=== PATIENT | male | born 1930 | race Caucasian/White ===

== ENCOUNTER 2016-06-25 18:57 | Observation (INO) | payer OTHER ==
[~2016-06-25] VITALS: Ht 170.2 cm; Wt 67.6 kg
[~2016-06-25 18:57] MED LIST: ASPIRIN325 MG PO; ATENOLOL25 M1 PO; B-12250 MCG PO; B12 PO; BEPREVE10 ML BOTH EYES; BETIMOL 0.100 DROP/5 BOTH EYES; FIORICET,ESG1 TABLET PO; FISH OIL 1,0001 EAC7 PO; FISH OIL CONC1000 M1 PO; HEARTBURN150 MG PO; LIPITOR PO; LIPITOR80 MG PO; LYRICA PO; LYRICA50 MG PO; MELATONIN300 MCG PO; METOCLOPRAMIDE H5 MG PO; MIRALAX255 GM PO; NIACIN1000 MG PO; NITROSTAT0.4 MG SL; OCUVITE; OCUVITE1 TABLET PO; PLAVIX75 MG PO; POLYETHYLENE GLYCOL; PRAVASTATIN SOD40 MG PO; PRINIVIL5 MG PO; RANITIDINE HCL150 M1 PO; RANITIDINE HCL150 MG PO; RHINOCORT AQUA8.6 G1 IH; SANCTURA20 MG PO; STOOL SOFTENER1 EAC2 PO; TENORMIN25 MG PO; TIMOLOL MALEATE5 M1 BOTH EYES; TRAVATAN 0.004%5 ML BOTH EYES; TRAVATAN Z5 ML BOTH EYES; TYLENOL ARTHRI650 M2 PO; VERAPAMIL HCL120 M1 PO; VIAGRA; VIAGRA100 MG PO; VITAMIN D1000 INTUN PO; XARELTO20 MG PO; ZETIA10 MG PO; predniSONE PO
[2016-06-25 19:48] LABS: HEMATOCRIT 40.9 % (38.0-50.0); MCH 33.6 PG (29.0-34.0); MCHC 34.2 G/DL (30.0-36.0); MCV 98.1 FL (86-99); MEAN PLAT.VOLUME 10.8 uM^3 (9.0-12.4); PLATELET COUNT 167 K/uL (156-360); RBC DIS.WIDTH-CV 12.4 % (11.8-14.6); RBC DIS.WIDTH-SD 43.1 % (39-53); RED BLOOD COUNT 4.17 M/uL (4.00-5.50); WHITE BLOOD COUNT 5.9 K/uL (4.1-10.2)
[2016-06-25 20:05] LABS: CHLORIDE 103 mEq/L (99-109); POTASSIUM 4.1 mEq/L (3.7-5.4); SODIUM 140 mEq/L (136-147)
[2016-06-25 20:06] LABS: GLUCOSE 150 mg/dL (70-99)
[2016-06-25 20:08] LABS: ANION GAP 8 MEQ/L (2-14)
[2016-06-25 20:10] LABS: GFR ESTIMATE (CALCULATED) > 59 mL/min/
[2016-06-25 20:11] LABS: UREA NITROGEN (BUN) 19 mg/dL (9-23)
[2016-06-25 20:12] LABS: TROP-I INTERPRETATION NEGATIVE; TROPONIN-I < 0.01 ng/mL (0.0-0.30)
[2016-06-25] MEDS ORDERED: LYRICA50 MG PO (22:39)
[2016-06-25] MEDS ORDERED: STOOL SOFTENER100 M1 PO (22:40)
[2016-06-25] MEDS ORDERED: OMEGA-3 + D SO1 EACH PO (22:41)
[2016-06-25] MEDS ORDERED: CARVEDILOL6.25 MG PO (22:41)
[2016-06-25] MEDS ORDERED: CIALIS5 MG PO (22:42)
[2016-06-25] MEDS ORDERED: OCUVITE TABLET1 EACH PO (22:42)
[2016-06-26 02:15] VITALS: BP 120/57
[2016-06-26 03:04] LABS: TROP-I INTERPRETATION NEGATIVE; TROPONIN-I < 0.01 ng/mL (0.0-0.30)
[2016-06-26 04:26] VITALS: BP 125/62
[2016-06-26 04:27] VITALS: BP 115/56
[2016-06-26 04:28] VITALS: BP 115/60
[2016-06-26 08:57] VITALS: BP 118/62
[2016-06-26 09:27] LABS: TROP-I INTERPRETATION NEGATIVE; TROPONIN-I < 0.01 ng/mL (0.0-0.30)
== END 2016-06-26 12:29 | disposition home or self-care (01) ==
LOC: EME 18:57 → EDOF 23:20 → 5WEST 23:20 → EDOF 23:20 → 5WEST 06-26 01:41
PROVIDERS: Physician Assistant
DX: R00.1 Bradycardia, unspecified (principal); R07.9 Chest pain, unspecified; R42 Dizziness and giddiness; I48.91 Unspecified atrial fibrillation; I25.10 Atherosclerotic heart disease of native coronary artery without angina pectoris; Z95.1 Presence of aortocoronary bypass graft; I25.2 Old myocardial infarction; Z79.01 Long term (current) use of anticoagulants; Z87.891 Personal history of nicotine dependence; Z86.73 Personal history of transient ischemic attack (TIA), and cerebral infarction without residual deficits
CPT/HCPCS: 70450; 71020; 80048; 84484; 85027; 93005; 99281; 99285; G0378

== ENCOUNTER 2016-07-01 23:42 | Observation (INO) | payer OTHER ==
[~2016-07-01] VITALS: Ht 170.2 cm; Wt 63.7 kg
[~2016-07-01 23:42] MED LIST changes: +CARVEDILOL6.25 MG PO; +CIALIS5 MG PO; +OCUVITE TABLET1 EACH PO; +OMEGA-3 + D SO1 EACH PO; +STOOL SOFTENER100 M1 PO
[2016-07-02 00:33] LABS: HEMATOCRIT 39.3 % (38.0-50.0); MCH 33.3 PG (29.0-34.0); MCHC 34.6 G/DL (30.0-36.0); MCV 96.3 FL (86-99); MEAN PLAT.VOLUME 10.9 uM^3 (9.0-12.4); PLATELET COUNT 152 K/uL (156-360); RBC DIS.WIDTH-CV 12.3 % (11.8-14.6); RBC DIS.WIDTH-SD 41.7 % (39-53); RED BLOOD COUNT 4.08 M/uL (4.00-5.50); WHITE BLOOD COUNT 6.1 K/uL (4.1-10.2)
[2016-07-02 00:42] LABS: CHLORIDE 107 mEq/L (99-109); POTASSIUM 3.8 mEq/L (3.7-5.4); SODIUM 139 mEq/L (136-147)
[2016-07-02 00:44] LABS: GLUCOSE 131 mg/dL (70-99)
[2016-07-02 00:45] LABS: ANION GAP 6 MEQ/L (2-14)
[2016-07-02 00:48] LABS: GFR ESTIMATE (CALCULATED) > 59 mL/min/; UREA NITROGEN (BUN) 16 mg/dL (9-23)
[2016-07-02 00:53] LABS: TROP-I INTERPRETATION NEGATIVE; TROPONIN-I < 0.01 ng/mL (0.0-0.30)
[2016-07-02 08:00] VITALS: BP 136/62
== END 2016-07-02 16:01 | disposition home or self-care (01) ==
LOC: EME 23:42 → EDOF 07-02 03:47 → 5WEST 07-02 03:47 → EDOF 07-02 03:47 → 5WEST 07-02 04:50
PROVIDERS: Emergency Medicine
DX: R55 Syncope and collapse (principal); I48.1 Persistent atrial fibrillation; I25.10 Atherosclerotic heart disease of native coronary artery without angina pectoris; Z95.5 Presence of coronary angioplasty implant and graft; I25.2 Old myocardial infarction; Z86.73 Personal history of transient ischemic attack (TIA), and cerebral infarction without residual deficits; I73.9 Peripheral vascular disease, unspecified; G47.33 Obstructive sleep apnea (adult) (pediatric); I35.0 Nonrheumatic aortic (valve) stenosis; Z79.01 Long term (current) use of anticoagulants; Z98.890 Other specified postprocedural states; Z87.891 Personal history of nicotine dependence; Z82.49 Family history of ischemic heart disease and other diseases of the circulatory system
CPT/HCPCS: 71010; 80048; 84443; 84484; 85027; 93005; 93306; 99281; 99285; G0378

== ENCOUNTER 2016-08-26 06:26 | Day surgery (SDC) | payer OTHER ==
[~2016-08-26] VITALS: Ht 171.4 cm; Wt 64.2 kg
[2016-08-26 17:17] VITALS: BP 154/70
[2016-08-26 19:50] VITALS: BP 158/79
[2016-08-26 23:59] VITALS: BP 117/72
[2016-08-27 03:27] VITALS: BP 146/69
[2016-08-27 07:05] VITALS: BP 128/87
[2016-08-27] MEDS ORDERED: METOPROLOL SUCC25 MG PO (10:57)
== END 2016-08-27 11:32 | disposition home or self-care (01) ==
LOC: CATH 06:26 → 4EAST 09:32 → 2SOUTH 09:32 → 4EAST 17:03
DX: I49.5 Sick sinus syndrome (principal); I95.9 Hypotension, unspecified; I73.9 Peripheral vascular disease, unspecified; G47.33 Obstructive sleep apnea (adult) (pediatric); Z95.1 Presence of aortocoronary bypass graft; I35.0 Nonrheumatic aortic (valve) stenosis; Z79.01 Long term (current) use of anticoagulants
CPT/HCPCS: 71010; C1786; C1894; C1898; G0378; J0690; J1200; J2250; J3010; S0020

== ENCOUNTER 2016-11-11 07:40 | Observation (INO) | payer OTHER ==
[~2016-11-11] VITALS: Ht 172.7 cm; Wt 67.7 kg
[~2016-11-11 07:40] MED LIST changes: +METOPROLOL SUCC25 MG PO
[2016-11-11 08:23] LABS: HEMATOCRIT 41.3 % (38.0-50.0); MCH 32.5 PG (29.0-34.0); MCHC 33.4 G/DL (30.0-36.0); MCV 97.4 FL (86-99); MEAN PLAT.VOLUME 11.2 uM^3 (9.0-12.4); PLATELET COUNT 130 K/uL (156-360); RBC DIS.WIDTH-CV 12.5 % (11.8-14.6); RBC DIS.WIDTH-SD 44.9 % (39-53); RED BLOOD COUNT 4.24 M/uL (4.00-5.50); WHITE BLOOD COUNT 4.9 K/uL (4.1-10.2)
[2016-11-11 08:34] LABS: CHLORIDE 106 mEq/L (99-109); POTASSIUM 4.5 mEq/L (3.7-5.4); SODIUM 139 mEq/L (136-147)
[2016-11-11 08:35] LABS: INTER. NORMALIZED RATIO 1.2; PROTHROMBIN TIME 12.7 (9.2-11.2); PTT 32.3 (25-32)
[2016-11-11 08:37] LABS: GLUCOSE 124 mg/dL (70-99)
[2016-11-11 08:38] LABS: ANION GAP 7 MEQ/L (2-14); TOTAL BILIRUBIN 0.7 mg/dL (0.0-1.0)
[2016-11-11 08:40] LABS: ALKALINE PHOSPHATASE 93 IU/L (3-129); GFR ESTIMATE (CALCULATED) > 59 mL/min/
[2016-11-11 08:41] LABS: UREA NITROGEN (BUN) 19 mg/dL (9-23)
[2016-11-11 08:43] LABS: TROP-I INTERPRETATION NEGATIVE; TROPONIN-I < 0.01 ng/mL (0.0-0.30)
[2016-11-11 08:44] LABS: DIGOXIN 0.4 ng/mL (0.8-2.0)
[2016-11-11 11:03] LABS: ADD MIUA? YES; BILIRUBIN NEGATIVE; BLOOD NEGATIVE; COLOR YELLOW ((YELLOW)); GLUCOSE (STRIP) NEGATIVE; KETONES NEGATIVE; LEUKOCYTES NEGATIVE; NITRITE NEGATIVE; PROTEIN (STRIP) NEGATIVE; SPECIFIC GRAVITY 1.014 (1.000-1.030); UROBILINOGEN 0.2 MG/DL (0.2-1.0)
[2016-11-11 11:12] LABS: BACTERIA NONE SEEN /HPF; EPITHELIAL CELLS NONE SEEN /HPF; MUCUS NONE SEEN /LPF; RED BLOOD CELLS 0-5 /HPF (0-5); WHITE BLOOD CELLS 0-5 /HPF (0-5)
[2016-11-11] MEDS ORDERED: LYRICA75 MG PO (15:42)
[2016-11-11] MEDS ORDERED: DIGITEK125 MC2 PO ×2 (15:45→16:20)
[2016-11-11] MEDS ORDERED: CYANOCOBALAM1000 MCG PO ×2 (15:47→15:56)
[2016-11-11] MEDS ORDERED: EXTRA STRENGTH500 M1 PO (15:47)
[2016-11-11] MEDS ORDERED: BEPREVE10 ML BOTH EYES (15:47)
[2016-11-11 16:21] VITALS: BP 152/69
[2016-11-11] MEDS ORDERED: DIGOXIN125 MCG PO (16:21)
[2016-11-11 18:42] VITALS: BP 139/67
[2016-11-11 18:44] VITALS: BP 136/65
[2016-11-11 18:45] VITALS: BP 141/65
[2016-11-11 23:50] VITALS: BP 174/70
[2016-11-12 00:45] VITALS: BP 174/70
[2016-11-12 03:51] VITALS: BP 126/61
[2016-11-12 07:53] LABS: ALKALINE PHOSPHATASE 73 IU/L (3-129); ANION GAP 5 MEQ/L (2-14); CHLORIDE 107 MEQ/L (99-109); DIRECT BILIRUBIN 0.1 mg/dL (0.0-0.3); GFR ESTIMATE (CALCULATED) > 59 mL/min/; GLUCOSE 98 mg/dL (70-99); POTASSIUM 4.3 MEQ/L (3.7-5.4); SAMPLE HEMOLYSIS CHECK 0; SAMPLE ICTERIC CHECK 0; SAMPLE LIPEMIA CHECK 0; SODIUM 141 MEQ/L (136-147); TOTAL BILIRUBIN 0.6 MG/DL (0.0-1.0); UREA NITROGEN (BUN) 18 mg/dL (9-23)
[2016-11-12 08:26] LABS: EOSINOPHIL (%) 2.1 % (0-5); EOSINOPHIL COUNT 0.2 K/uL (0-0.3); HEMATOCRIT 37.4 % (38.0-50.0); IMMATURE GRANULOCYTE (%) 0.1 % (0.0-0.7); INSTRUMENT ABS NEUTROPHIL CT 3.9 K/uL; LYMPHOCYTE COUNT 2.4 K/uL (1.0-2.8); MCH 33.2 PG (29.0-34.0); MCHC 33.4 G/DL (30.0-36.0); MCV 99.2 FL (86-99); MEAN PLAT.VOLUME 11.3 uM^3 (9.0-12.4); MONOCYTE COUNT 0.8 K/uL (0-0.8); NEUTROPHIL (%) 53.9 % (45-76); NEUTROPHIL COUNT 3.9 K/uL (1.8-6.4); PLATELET COUNT 121 K/uL (156-360); RBC DIS.WIDTH-CV 12.8 % (11.8-14.6); RBC DIS.WIDTH-SD 46.5 % (39-53); RED BLOOD COUNT 3.77 M/uL (4.00-5.50); WHITE BLOOD COUNT 7.3 K/uL (4.1-10.2)
[2016-11-12 08:47] VITALS: BP 198/93
[2016-11-12 08:51] VITALS: BP 140/71; BP 191/82
[2016-11-12 11:43] VITALS: BP 139/87
[2016-11-12] MEDS ORDERED: METOPROLOL SUCC25 MG PO (12:06)
[2016-11-12] MEDS ORDERED: ANTIVERT25 MG PO (12:06)
== END 2016-11-12 13:08 | disposition home or self-care (01) ==
LOC: EME 07:40 → 5WEST 14:35 → EDOF 14:35 → 5WEST 16:17
PROVIDERS: Nurse Practitioner Adult Health; Nurse Practitioner Family
DX: R55 Syncope and collapse (principal); R42 Dizziness and giddiness; R11.2 Nausea with vomiting, unspecified; I25.10 Atherosclerotic heart disease of native coronary artery without angina pectoris; Z95.1 Presence of aortocoronary bypass graft; I48.1 Persistent atrial fibrillation; I35.0 Nonrheumatic aortic (valve) stenosis; Z95.0 Presence of cardiac pacemaker; I25.2 Old myocardial infarction; Z86.73 Personal history of transient ischemic attack (TIA), and cerebral infarction without residual deficits; G47.33 Obstructive sleep apnea (adult) (pediatric); Z87.891 Personal history of nicotine dependence; R44.1 Visual hallucinations; G93.89 Other specified disorders of brain; I95.1 Orthostatic hypotension; H35.30 Unspecified macular degeneration; H40.9 Unspecified glaucoma; G43.909 Migraine, unspecified, not intractable, without status migrainosus
CPT/HCPCS: 70450; 71020; 80048; 80053; 80076; 80162; 81003; 83605; 84484; 85025; 85027; 85610; 85730; 93005; 99281; 99284; G0378; J7030

== ENCOUNTER 2017-06-29 21:20 | Inpatient (IN) | payer OTHER ==
[~2017-06-29] VITALS: Ht 175.3 cm; Wt 70.4 kg
[~2017-06-29 21:20] MED LIST changes: +ANTIVERT25 MG PO; +CYANOCOBALAM1000 MCG PO; +DIGITEK125 MC2 PO; +DIGOXIN125 MCG PO; +FISH OIL 1,4001 EACH PO; -OMEGA-3 + D SO1 EACH PO; +TYLENOL ARTHRI650 MG PO
[2017-06-29 21:50] LABS: HEMATOCRIT 40.6 % (38.0-50.0); HEMOGLOBIN 13.6 G/DL (12.5-16.6); MCH 33.2 PG (29.0-34.0); MCHC 33.5 G/DL (30.0-36.0); PLATELET COUNT 154 K/uL (156-360); RBC DIS.WIDTH-CV 12.9 % (11.8-14.6); RBC DIS.WIDTH-SD 47.1 % (39-53); WHITE BLOOD COUNT 7.7 K/uL (4.1-10.2)
[2017-06-29 21:58] LABS: CHLORIDE 106 mEq/L (99-109); POTASSIUM 4.2 mEq/L (3.7-5.4); SODIUM 140 mEq/L (136-147)
[2017-06-29 22:00] LABS: GLUCOSE 101 mg/dL (70-99)
[2017-06-29 22:04] LABS: GFR ESTIMATE (CALCULATED) > 59 mL/min/ (58.99-99999)
[2017-06-29 22:05] LABS: UREA NITROGEN (BUN) 19 mg/dL (9-23)
[2017-06-29 22:48] LABS: TROP-I INTERPRETATION NEGATIVE; TROPONIN-I < 0.01 ng/mL (0.0-0.30)
[2017-06-29] MEDS ORDERED: TOPROL XL25 MG PO (23:49)
[2017-06-29] MEDS ORDERED: VITAMIN E400 UNIT PO (23:50)
[2017-06-29] MEDS ORDERED: CIALIS5 MG PO (23:50)
[2017-06-29] MEDS ORDERED: BIOTIN1000 MICRO PO (23:51)
[2017-06-29] MEDS ORDERED: MELATIN3 MG PO (23:51)
[2017-06-29] MEDS ORDERED: VITAMIN D31000 UNIT PO (23:51)
[2017-06-30 05:07] VITALS: BP 162/79
[2017-06-30 07:07] LABS: TROP-I INTERPRETATION NEGATIVE; TROPONIN-I 0.01 ng/mL (0.0-0.30)
[2017-06-30 07:40] VITALS: BP 96/56
[2017-06-30 11:46] VITALS: BP 91/64
[2017-06-30 16:12] VITALS: BP 127/62
[2017-06-30 19:18] VITALS: BP 139/67
[2017-06-30 23:23] VITALS: BP 105/52
[2017-07-01 03:32] VITALS: BP 116/50
[2017-07-01 07:18] LABS: HEMATOCRIT 39.3 % (38.0-50.0); HEMOGLOBIN 12.9 G/DL (12.5-16.6); MCH 32.3 PG (29.0-34.0); MCHC 32.8 G/DL (30.0-36.0); MCV 98.5 FL (86-99); PLATELET COUNT 170 K/uL (156-360); RBC DIS.WIDTH-CV 12.8 % (11.8-14.6); RBC DIS.WIDTH-SD 46.2 % (39-53); RED BLOOD COUNT 3.99 M/uL (4.00-5.50); WHITE BLOOD COUNT 7.1 K/uL (4.1-10.2)
[2017-07-01 07:23] VITALS: BP 124/62
[2017-07-01 07:31] LABS: CHLORIDE 104 MEQ/L (99-109); CREATININE 0.9 MG/DL (0.6-1.3); GFR ESTIMATE (CALCULATED) > 59 mL/min/ (58.99-99999); GLUCOSE 97 mg/dL (70-99); POTASSIUM 4.1 MEQ/L (3.7-5.4); SODIUM 139 MEQ/L (136-147); UREA NITROGEN (BUN) 19 mg/dL (9-23)
[2017-07-01 12:36] VITALS: BP 146/78
[2017-07-01] MEDS ORDERED: LASIX40 MG PO (13:25)
== END 2017-07-01 14:14 | disposition home health service (06) | DRG 292 ==
LOC: EME 21:20 → EDOF 06-30 00:11 → ENRESERV 06-30 00:13 → 2EASTP 06-30 01:10
PROVIDERS: Hospitalist
DX: I11.0 Hypertensive heart disease with heart failure (principal); J44.0 Chronic obstructive pulmonary disease with (acute) lower respiratory infection; I50.31 Acute diastolic (congestive) heart failure; I48.2 Chronic atrial fibrillation; I48.1 Persistent atrial fibrillation; J20.9 Acute bronchitis, unspecified; I49.5 Sick sinus syndrome; Z95.0 Presence of cardiac pacemaker; I08.3 Combined rheumatic disorders of mitral, aortic and tricuspid valves; G47.33 Obstructive sleep apnea (adult) (pediatric); E78.5 Hyperlipidemia, unspecified; H40.9 Unspecified glaucoma; I25.2 Old myocardial infarction; R09.02 Hypoxemia; Z79.01 Long term (current) use of anticoagulants; Z86.73 Personal history of transient ischemic attack (TIA), and cerebral infarction without residual deficits; Z87.891 Personal history of nicotine dependence; Z95.5 Presence of coronary angioplasty implant and graft; Z95.1 Presence of aortocoronary bypass graft; I27.20 Pulmonary hypertension, unspecified
CPT/HCPCS: 71046; 80048; 83880; 84484; 85027; 93005; 93306; 94640; 94799; 99202; 99281; 99285; J1940

== ENCOUNTER 2017-07-17 07:04 | Day surgery (SDC) | payer OTHER ==
[~2017-07-17] VITALS: Ht 172.7 cm; Wt 68.0 kg
[~2017-07-17 07:04] MED LIST changes: +BIOTIN1000 MICRO PO; +LASIX40 MG PO; +MELATIN3 MG PO; +TOPROL XL25 MG PO; +VITAMIN D31000 UNIT PO; +VITAMIN E400 UNIT PO
== END 2017-07-17 14:55 | disposition home or self-care (01) ==
LOC: CATH 07:04
DX: I25.10 Atherosclerotic heart disease of native coronary artery without angina pectoris (principal); I25.82 Chronic total occlusion of coronary artery; I35.0 Nonrheumatic aortic (valve) stenosis; I50.9 Heart failure, unspecified; I49.5 Sick sinus syndrome; I73.9 Peripheral vascular disease, unspecified; G47.33 Obstructive sleep apnea (adult) (pediatric); I48.91 Unspecified atrial fibrillation; Z95.1 Presence of aortocoronary bypass graft; Z79.01 Long term (current) use of anticoagulants
CPT/HCPCS: C1769; C1887; J1200; J1644; J2250; J3010; J7040